=== PATIENT | male | born 1985 ===

== ENCOUNTER 2023-09-12 13:31 | Emergency (ER) | payer OTHER ==
[~2023-09-12] VITALS: Ht 162.6 cm; Wt 68.2 kg
[2023-09-12] MEDS ORDERED: BUPR1TAB46 SL (13:55)
[2023-09-12] MEDS ORDERED: MIRT-89 PO (13:55)
[2023-09-12 14:21] VITALS: TEMP 97.8
[2023-09-12 14:26] LABS: BASOPHILS % (AUTO) 0.5 % (0.0-2.0); EOSINOPHILS % (AUTO) 0.4 % (1.0-6.0); HEMATOCRIT 42.8 % (41-53); HEMOGLOBIN 14.7 g/dL (13.5-17.5); LYMPHOCYTES # (AUTO) 2.1 K/uL (1.0-4.8); LYMPHOCYTES % (AUTO) 32.5 % (22.0-44.0); MEAN CORPUSCULAR HEMOGLOBIN 31.3 pg (26.0-34.0); MEAN CORPUSCULAR HGB CONC 34.4 G/dL (31.0-37.0); MEAN CORPUSCULAR VOLUME 91 fL (80-100); MONOCYTES # (AUTO) 0.5 K/uL (0.1-1.0); MONOCYTES % (AUTO) 7.4 % (2.0-9.0); NEUTROPHILS # (AUTO) 3.7 K/uL (1.8-7.7); NEUTROPHILS % (AUTO) 59.2 % (40.0-70.0); PLATELET COUNT (AUTO) 255 K/uL (150-450); RED BLOOD CELL COUNT(AUTO) 4.69 MIL/uL (4.50-5.90); RED CELL DISTRIBUTION WIDTH 14.5 % (11.5-14.5); WHITE BLOOD COUNT (AUTO) 6.3 K/uL (4.5-11.0)
[2023-09-12 14:35] LABS: ANION GAP 13 mmol/L (8-16); CALCIUM, TOTAL 8.9 mg/dL (8.8-10.5); CARBON DIOXIDE 25 mmol/L (22-29); CHLORIDE 101 mmol/L (98-107); CREATININE 0.77 mg/dL (0.60-1.30); GLOMERULAR FILTR. RATE CALC > 60 mL/min (>60); GLUCOSE,RANDOM 88 mg/dL (70-110); POTASSIUM 4.2 mmol/L (3.5-5.1); SODIUM SERUM 139 mmol/L (136-145); UREA NITROGEN, BLOOD 13 mg/dL (7-18)
[2023-09-12 14:43] LABS: TROPONIN I-HIGH SENSITIVITY 4 ng/L (<76)
[2023-09-12 14:58] LABS: B-TYPE NATRIURETIC PEPTIDE 6 pg/mL (0-100)
[2023-09-12 14:59] LABS: ALANINE AMINOTRANSFERASE 100 U/L (12-78); ALKALINE PHOSPHATASE 94 U/L (46-116); ASPARTATE AMINOTRANSFERASE 74 U/L (15-37); BILIRUBIN,TOTAL 0.8 mg/dL (0.1-1.0); CREATINE KINASE, TOTAL ONLY 793 U/L (39-308)
[2023-09-12 15:10] LABS: COVID AG,FIA SOURCE NASAL SWAB
[2023-09-12 15:28] LABS: SARS-COV2 (COVID) ANTIGEN,FIA Negative (Negative)
[2023-09-12 16:49] VITALS: BP 129/72; PULSE 73; RESP 16
== END 2023-09-12 18:04 | disposition home or self-care (01) ==
LOC: EMS 13:31
DX: S09.90XA Unspecified injury of head, initial encounter (principal); R55 Syncope and collapse; Z20.822 Contact with and (suspected) exposure to COVID-19; X58.XXXA Exposure to other specified factors, initial encounter; Y93.89 Activity, other specified; Y92.89 Other specified places as the place of occurrence of the external cause; Y99.8 Other external cause status
CPT/HCPCS: 70450; 70486; 71045; 72125; 80053; 82550; 83880; 84484; 85025; 93005; 99285; 36415-L1; 36415-TC